=== PATIENT | male | born 1980 | race Caucasian/White ===

== ENCOUNTER 2024-05-25 07:45 | Day surgery (SDC) | payer OTHER ==
[2024-05-25] MEDS ORDERED: Ondansetron PF 4 MG/2 ML Vial ONE ×2 (08:03→12:20)
[2024-05-25] MEDS ORDERED: Morphine 4 MG/ML VIAL ONE (08:03)
[2024-05-25 08:09] LABS: #Basophils 0.05 10x3/uL (0.0-0.2); %Basophils 0.5 % (0.0-1.0); %Eosinophils 1.9 % (0.0-10.0); %Lymphocytes 15.3 % (21.0-51.0); %Monocytes 6.2 % (0.0-10.0); %Neutrophils 75.6 % (42.0-75.0); Hematocrit 42.9 % (42.0-52.0); Hemoglobin 14.7 g/dL (14.0-18.0); Mean Corpuscular HGB CONC 34.3 g/dL (32.0-36.0); Mean Corpuscular Hemoglobin 30.5 pg (27.0-31.0); Mean Platelet Volume 9.6 fL (7.4-10.4); Platelet Count 234 10x3/uL (130-400); Red Blood Cell (RBC) Count 4.82 mill/uL (4.70-6.10)
[2024-05-25 08:47] LABS: ALT (SGPT) 35 U/L (8-55); AST (SGOT) 20 U/L (5-34); Albumin 3.8 g/dL (3.5-5.0); Alkaline Phosphatase 95 U/L (40-110); Anion Gap 11 mmol/L (10-20); BUN (Urea Nitrogen) 6 mg/dL (8.9-20.6); Bilirubin, Total 0.4 mg/dL (0.2-1.2); Calc. Creatinine Clearance 0 mL/min (70-130); Carbon Dioxide 30 mmol/L (22-29); Chloride 104 mmol/L (98-107); Estimated GFR 102; Globulin 2.9 g/dL (2.4-3.5); Glucose 122 mg/dL (70-105); Lipase 11 U/L (8-78); Potassium 3.6 mmol/L (3.5-5.1); Protein, Total 6.7 g/dL (6.0-8.3); Sodium 141 mmol/L (136-145)
[2024-05-25] MEDS ORDERED: Piperacillin/Tazobactam 4.5 GM VIAL ONE (08:58)
[2024-05-25] MEDS ORDERED: Ketorolac Tromethamine 30 MG (1 mL) VIAL ONE (08:58)
[2024-05-25] MEDS ORDERED: Sodium Chloride 0.9% 100 ML ONE (08:59)
[2024-05-25] MEDS ORDERED: HYDROmorphone 0.5 MG/0.5 ML SYRINGE ONE (09:33)
[2024-05-25] MEDS ORDERED: fentaNYL PF 100 MCG/2 ML SYRINGE ONE (12:20)
[2024-05-25] MEDS ORDERED: Midazolam HCl 2 mg/2 ml Vial ONE (12:20)
[2024-05-25] MEDS ORDERED: SUGAMMADEX SODIUM 200 MG/2 ML VIAL ONE (12:20)
[2024-05-25] MEDS ORDERED: Lidocaine 1% PF 5 ML VIAL ONE (12:20)
[2024-05-25] MEDS ORDERED: Rocuronium Bromide 10 MG/ML (10ML VIAL) ONE (12:20)
[2024-05-25] MEDS ORDERED: PROPOFOL 20 ML ONE (12:20)
[2024-05-25] MEDS ORDERED: Bupivacaine PF 0.5% 30 ML VIAL ONE (13:18)
[2024-05-25] MEDS ORDERED: EPINEPHrine 1 MG/ML VIAL ONE (13:18)
[2024-05-25] MEDS ORDERED: PHENYLEPHRINE-NS 100 MCG/ML 10 ML SYRINGE ONE (13:50)
[2024-05-25] MEDS ORDERED: Dexamethasone 20 MG/5 ML VIAL ONE (13:50)
[2024-05-25] MEDS ORDERED: Acetaminophen/Codeine 30-300mg Tablet PO PRN (15:19)
[2024-05-25] MEDS ORDERED: HYDROcodone/Acetaminophen 5/325 mg Tablet ONE (15:58)
== END 2024-05-25 16:15 | disposition home or self-care (01) ==
LOC: ERS 07:45 → SDC 15:08
PROVIDERS: ATTEND Student in an Organized Health Care Education/Training Program
PROC: 0FT44ZZ Resection of Gallbladder, Percutaneous Endoscopic Approach (ICD-10-PCS; principal; 2024-05-25)
DX: K80.10 Calculus of gallbladder with chronic cholecystitis without obstruction (principal)
CPT/HCPCS: 36415; 76705; 80053; 83605; 83690; 85025; 87040; 88304; 96374; 96375; C1889; J0171; J0665; J1100; J1170; J1885; J2250; J2270; J2405; J2543; J2704; J3490